=== PATIENT | female | born 2000 | race Caucasian/White ===

== ENCOUNTER 2019-03-03 13:17 | Inpatient (IN) | payer OTHER ==
[~2019-03-03] VITALS: Ht 162.6 cm; Wt 63.5 kg
[2019-03-03 13:28] VITALS: BP 122/98
[2019-03-03] MEDS ORDERED: ONDANSETRON 4 MG/2 ML VIAL IVP ONE (13:40)
[2019-03-03] MEDS ORDERED: MORPHINE SULFATE 4 MG/ML SYR IVP ONE ×2 (13:40→14:30)
[2019-03-03] MEDS ORDERED: NACL 0.9% 1,000 ML IV ONE (13:40)
--- NOTE | 2019-03-03 14:10 | NUR ---
PT TO ER BED 03
--- NOTE | 2019-03-03 14:20 | NUR ---
PT BIB FREIND WITH C/O LRQ PAIN. PER PT SHE WOKE UP WITH PAIN AT THE ABDOMEN THIS AM. DENIES ANY RADIATION. BM REGULAR. HAS NAUSEA. DEIES ANY PROBLEM WITH URINATION. PAIN 10/10 , MAONING. ABDOMEN IS SOFT TO TOUCH, NON-TENDER . NO PAST MEDICAL HX. NO MEDS TAKEN AT HOME. PT SEEN BY ER MD. WILL CONTINUE TO MONITOR PT.
[2019-03-03 14:21] LABS: BASOPHILS % (AUTO) 0.2 % (0.0-2.0); EOSINOPHILS # (AUTO) 0.1 K/uL (0-0.4); EOSINOPHILS % (AUTO) 0.3 % (0.0-4.0); HEMATOCRIT 38.3 % (36-48); HEMOGLOBIN 12.7 g/dL (12.0-16.0); LYMPHOCYTES # (AUTO) 1.2 K/uL (2.5-16.5); LYMPHOCYTES % (AUTO) 7.4 % (20.5-51.1); MEAN CORPUSCULAR HEMOGLOBIN 30 pg (27-31); MEAN CORPUSCULAR HGB CONC 33 g/dL (33-37); MEAN CORPUSCULAR VOLUME 89.2 fL (80-94); MONOCYTES # (AUTO) 0.5 K/uL (0.8-1.0); MONOCYTES % (AUTO) 3.3 % (1.7-9.3); NEUTROPHILS # (AUTO) 14.4 K/uL (1.8-7.7); NEUTROPHILS % (AUTO) 88.8 % (42.2-75.2); PLATELET COUNT (AUTO) 256 K/uL (140-450); RED BLOOD CELL COUNT(AUTO) 4.29 MIL/uL (4.20-5.40); WHITE BLOOD COUNT (AUTO) 16.2 K/uL (4.5-11.0)
--- NOTE | 2019-03-03 14:22 | NUR ---
CHECKED ON PT. STILL C/O PAIN WITH SHAKINESS.
[2019-03-03] MEDS ORDERED: KETOROLAC 15 MG/ML VIAL IVP ONE (14:30)
[2019-03-03 14:32] LABS: ANION GAP 15.8 (8-16); CARBON DIOXIDE 24.1 mmol/L (21-32); CREATININE 0.8 mg/dL (0.6-1.3); POTASSIUM 3.9 mmol/L (3.5-5.1)
[2019-03-03 14:40] LABS: ALBUMIN 3.8 g/dL (3.4-5.0); TOTAL BILIRUBIN 0.6 mg/dL (0.0-1.0)
--- NOTE | 2019-03-03 16:32 | NUR ---
CHECKED ON PT, INFORMED HER OF THE PENDING CT AND US REPORT. PER PT, PAIN TOLERABLE AT THIS TIME. RESTIG IN HER BED. WILL CONTINUE TO MONITOR PT.
--- NOTE | 2019-03-03 18:20 | NUR ---
CHECKED ON PT. JARROD FOR D/C. TO TALK TO PT.
[2019-03-03] MEDS ORDERED: MORPHINE SULFATE 2 MG/ML SYR IVP PRN (19:00)
[2019-03-03] MEDS ORDERED: ACETAMINOPHEN 325 MG TAB PO PRN (19:00)
[2019-03-03] MEDS ORDERED: HYDROcodone/APAP 10/325 MG 1 TAB TAB PO PRN (19:00)
[2019-03-03] MEDS ORDERED: LORazepam 2 MG/ML VIAL IM/IVP PRN (19:00)
[2019-03-03] MEDS ORDERED: ONDANSETRON 4 MG/2 ML VIAL IM/IVP PRN (19:00)
[2019-03-03] MEDS ORDERED: DOCUSATE SODIUM 100 MG GELCAP PO PRN (19:00)
--- NOTE | 2019-03-03 19:00 | NUR ---
RECIVED VERBAL AUTHORIZATION FROM PATIENT TO SPEAK TO MOTHER, MAKI, VIA TELEPHONE.
--- NOTE | 2019-03-03 19:15 | NUR ---
SPOKE WITH MOM, MAKI, INFORMED OF PT STATUS AND PLAN TO ADMIT. ALL QUESTIONS ANSWERED.
--- NOTE | 2019-03-03 19:40 | NUR ---
RECEIVED REPORT FROM ED NURSE. PATIENT IS AWAKE, ALERT, AND COOPERATIVE. ADMITTING DIAGNOSIS ABDOMINAL PAIN R/O APPENDICITIS. RESPIRATION EVEN UNLABORED ON ROOM AIR. SKIN IS WARM AND DRY. IV PATENT AND INTACT. HEART RATE IS REGULAR. LUNGS SOUNDS CLEAR ON AUSCULTATION. BOWEL SOUND ACTIVE IN ALL QUADRANTS. ABDOMEN SOFT AND TENDER TO TOUCH. COMPLAINED OF RIGHT SIDE ABDOMINAL PAIN. WILL ADMINISTER PAIN MEDS PER ORDER. MRSA SCREEN DONE. ORIENT PATIENT TO ROOM, STAFF, AND CALL LIGHT. VITALS WERE TAKEN. ALL SAFETY MEASURES IN PLACE. PLAN OF CARE WAS DISCUSSED. BED IS AT LOW POSITION. CALL LIGHT WITHIN REACH AND VERBALIZES ITS USE. WILL CONTINUE TO MONITOR.
--- NOTE | 2019-03-03 19:40 | NUR ---
Patient will be admitted to care of DR. CANO. Admited to [facility] FLOOR. Will go to room 120A. Belongings list completed. Report to SHER LOJA.
[2019-03-03 19:55] LABS: MAGNESIUM 1.5 mg/dL (1.8-2.4); THYROID STIMULATING HORMONE 0.9 uIU/mL (0.34-3.74)
[2019-03-03] MEDS ORDERED: metroNIDAZOLE 500 MG/NS PREMIX 100 ML IV SCH (20:00)
--- NOTE | 2019-03-03 20:00 | NUR ---
PATIENT GAVE ME PERMISSION TO SHARE INFORMATION TO HER MOTHER PATRICIO.PATIENTS MOM IS AWARE OF HER DAUGHTER SITUATION AND WILL NOTIFY HER IF THERE'S ANY UP DATES.
[2019-03-03 20:17] LABS: BARBITURATE, URINE NEG. ng/ml (NEG <=200); BENZODIAZEPINE, URINE NEG. ng/mL (NEG <=200); CANNABINOID, URINE NEG. ng/mL (NEG <=50); COCAINE, URINE NEG. ng/mL (NEG <=300); OPIATE, URINE NEG. ng/mL (NEG <=2000); PHENCYCLIDINE SCREEN,URINE NEG. ng/mL (NEG <=25)
[2019-03-03 20:18] LABS: PROTHROMBIN TIME 9.2 secs (10.8-13.4)
[2019-03-03] MEDS: KETOROLAC 15 MG/ML VIAL IVP PRN (20:24)
[2019-03-03] MEDS: DEXT 5% /NACL 0.9% 1,000 ML IV SCH (20:24)
[2019-03-03 20:27] LABS: APPEARANCE,URINE CLEAR (CLEAR); BILIRUBIN,URINE NEGATIVE (NEGATIVE); BLOOD, URINE NEGATIVE (NEGATIVE); COLOR,URINE YELLOW (YELLOW); PH,URINE 7.5 (5.0-9.0); UGLUCOSE NEGATIVE (NEGATIVE)
[2019-03-03 20:28] LABS: LEUKOCYTE ESTERASE ,URINE NEGATIVE (NEGATIVE); NITRITE, URINE NEGATIVE (NEGATIVE)
--- NOTE | 2019-03-03 20:30 | NUR ---
ADMINISTERED PRN PAIN MEDS TO THE PATIENT. DR. HERRERA AND DR. SEGUNDO AT BEDSIDE SPEAKING WITH THE PATIENT.
[2019-03-03] MEDS ORDERED: ZOLPIDEM 5 MG TAB PO PRN (21:00)
[2019-03-03] MEDS ORDERED: MAG SULF 2000 MG/WATER PREMIX 50 ML IV SCH (21:00)
[2019-03-03] MEDS ORDERED: cefTRIAXone 1,000 MG VIAL ONE (21:37)
--- NOTE | 2019-03-03 23:00 | NUR ---
PATIENT LEFT THE UNIT IN STABLE CONDITION AND WENT TO CT SCAN.
--- NOTE | 2019-03-03 23:20 | NUR ---
PATIENT IS BACK ON THE UNIT. PATIENT IS IN STABLE CONDITION. NO DISTRESS NOTED. WILL CONTINUE TO MONITOR.
[2019-03-04] VITALS: BP 98/50
--- NOTE | 2019-03-04 | NUR ---
VITALS WERE TAKEN. PATIENT IN STABLE CONDITION. PATIENT COMPLAINED OF ABDOMINAL PAIN 8/. PRN PAIN MED ADMINISTERED PER ORDER. WILL CONTINUE TO MONITOR.
[2019-03-04] MEDS: MORPHINE SULFATE 2 MG/ML SYR IVP PRN ×4 (00:48→18:41)
--- NOTE | 2019-03-04 01:00 | NUR ---
PATIENT MOM CALLED ASKING FOR THE RESULT OF THE CT ABDOMEN/PELVIS. TOLD HER RESULT IS NOT OUT YET AND WILL NOTIFY HER SOON ITS OUT. WILL PAGE RADIOLOGY AGAIN TO SPEED UP THE PROCESS OF THE RESULT.
--- NOTE | 2019-03-04 01:30 | NUR ---
CT ABDOMEN/PELVIS RESULT IS OUT. GAVE THE RESULT TO DR. HERRERA. WILL CONTINUE TO MONITOR.
--- NOTE | 2019-03-04 02:00 | NUR ---
CHECKED ON PATIENT. PATIENT SLEEPING RESPIRATION EVEN UNLABORED ON ROOM AIR. NO DISTRESS NOTED. WILL CONTINUE TO MONITOR.
--- NOTE | 2019-03-04 04:00 | NUR ---
VITALS WERE TAKEN. PATIENT COMPLAINED OF ABDOMINAL PAIN 5/10. PRN PAIN MED ADMINISTERED PER ORDER. WILL CONTINUE TO MONITOR
[2019-03-04] MEDS: KETOROLAC 15 MG/ML VIAL IVP PRN (04:21)
[2019-03-04] MEDS: DEXT 5% /NACL 0.9% 1,000 ML IV SCH ×2 (05:52→14:59)
--- NOTE | 2019-03-04 06:46 | NUR ---
PATIENT HAS BEEN SCREENED AND CATEGORIZED LOW NUTRITION RISK. PATIENT WILL BE SEEN WITHIN 7 DAYS OF ADMISSION. 03/11/19 RADHA CASTRO MS, RDN Addendum: 03/04/19 at [address] *Correction: PATIENT HAS BEEN SCREENED AND CATEGORIZED LOW NUTRITION RISK. PATIENT WILL BE SEEN WITHIN 7 DAYS OF ADMISSION. 03/10/19 RADHA CASTRO MS, RDN
--- NOTE | 2019-03-04 07:28 | NUR ---
RECEIVED REPORT FROM POWER REACTOR SUPERVISOR NURSE. PT IS AAOX4, NO C/O PAIN. IV ON LT AC 20 GA RUNNING IVF PER ORDER. RESPIRATIONS EVEN AND UNLABORED ON RA. ABD SOFT, ACTIVE BS. SKIN IS INTACT, WARM TO TOUCH. SAFETY MEASURES IN PLACE, CALL LIGHT WITHIN REACH. REVIEWED POC WITH PT, PT VERBALIZES UNDERSTANDING.
--- NOTE | 2019-03-04 07:28 | NUR ---
ENDORSED PATIENT TO DAY SHIFT NURSE. PATIENT IN STABLE CONDITION
[2019-03-04] MEDS: BUPIVACAINE-MPF/EPI 0.5% 30 ML VIAL INJ ONE ×2 (07:29→09:01)
--- NOTE | 2019-03-04 07:30 | NUR ---
PT TAKEN FOR LAPAROSCOPIC APPENDECTOMY PROCEDURE AT THIS TIME. NO SIGNS OF DISTRESS NOTED.
[2019-03-04 07:43] LABS: BASOPHILS % (AUTO) 0.2 % (0.0-2.0); EOSINOPHILS # (AUTO) 0.1 K/uL (0-0.4); EOSINOPHILS % (AUTO) 0.5 % (0.0-4.0); HEMATOCRIT 36.5 % (36-48); HEMOGLOBIN 12.2 g/dL (12.0-16.0); LYMPHOCYTES # (AUTO) 1.4 K/uL (2.5-16.5); LYMPHOCYTES % (AUTO) 11.1 % (20.5-51.1); MEAN CORPUSCULAR HEMOGLOBIN 30 pg (27-31); MEAN CORPUSCULAR HGB CONC 33 g/dL (33-37); MEAN CORPUSCULAR VOLUME 89.8 fL (80-94); MONOCYTES # (AUTO) 0.9 K/uL (0.8-1.0); MONOCYTES % (AUTO) 7.2 % (1.7-9.3); NEUTROPHILS # (AUTO) 9.9 K/uL (1.8-7.7); PLATELET COUNT (AUTO) 248 K/uL (140-450); RED BLOOD CELL COUNT(AUTO) 4.06 MIL/uL (4.20-5.40); RED CELL DISTRIBUTION WIDTH 13.4 % (11.6-13.7); WHITE BLOOD COUNT (AUTO) 12.3 K/uL (4.5-11.0)
[2019-03-04 07:45] LABS: MAGNESIUM 2.1 mg/dL (1.8-2.4)
[2019-03-04 07:51] LABS: ANION GAP 13.8 (8-16); CARBON DIOXIDE 23.8 mmol/L (21-32); CREATININE 0.8 mg/dL (0.6-1.3); POTASSIUM 3.6 mmol/L (3.5-5.1)
[2019-03-04] MEDS ORDERED: MIDAZOLAM 2 MG/2 ML VIAL ONE (07:53)
[2019-03-04] MEDS ORDERED: fentaNYL 0.05 MG/ML VIAL ONE (07:53)
[2019-03-04 07:56] LABS: PHOSPHORUS 3.4 mg/dL (2.5-4.9)
[2019-03-04] MEDS ORDERED: ONDANSETRON 4 MG/2 ML VIAL IVP ONE (08:10)
[2019-03-04] MEDS ORDERED: GLYCOPYRROLATE 0.2 MG/ML VIAL IV ONE (08:10)
[2019-03-04] MEDS ORDERED: LIDOCAINE MPF 1% 10 MG/ML VIAL INJ ONE (08:10)
[2019-03-04] MEDS ORDERED: KETOROLAC 30 MG/ML VIAL IVP ONE (08:10)
[2019-03-04] MEDS ORDERED: DEXAMETHASONE 4 MG/ML VIAL IVP ONE (08:10)
[2019-03-04] MEDS ORDERED: SUCCINYLCHOLINE CHLORIDE 200 MG/10 ML VIAL IV ONE (08:10)
[2019-03-04] MEDS ORDERED: PHENYLEPHRINE 10 MG/ML VIAL IV ONE (08:10)
[2019-03-04] MEDS ORDERED: PROPOFOL 200 MG/20 ML VIAL IV ONE (08:10)
[2019-03-04] MEDS ORDERED: ROCURONIUM 50 MG/5 ML VIAL IV ONE (08:10)
[2019-03-04] MEDS ORDERED: DESFLURANE 240 ML BTL INH ONE (08:10)
[2019-03-04 08:34] LABS: CHOL/HDL RATIO 3.3 (1-4.5)
[2019-03-04] MEDS ORDERED: ONDANSETRON 4 MG/2 ML VIAL IVP PRN (09:15)
[2019-03-04] MEDS ORDERED: HYDROmorphone 1 MG/ML AMP IVP PRN (09:15)
[2019-03-04 10:25] VITALS: BP 98/51
--- NOTE | 2019-03-04 10:25 | NUR ---
PT RETURNED FROM PROCEDURE. DECREASED BLOOD PRESSURE NOTED, PHYSICIAN NOTIFIED. C/O LEVEL 7/10 PAIN TO ABDOMEN, WILL MEDICATE PER ORDER. FATHER/RAY AT BEDSIDE.
[2019-03-04] MEDS: metroNIDAZOLE 500 MG/NS PREMIX 100 ML IV SCH ×3 (10:40→17:24)
--- NOTE | 2019-03-04 10:52 | NUR ---
ADMINISTERED MORPHINE FOR PAIN AND ZOFRAN FOR FEELINGS OF NAUSEA. PT REFUSED LACTOBACILLUS AT THIS TIME, NOTIFIED PHYSICIAN. PT GIVEN COOL WASHCLOTH TO FOREHEAD PER REQUEST. WILL CONTINUE TO MONITOR PT.
[2019-03-04] MEDS: LACTOBACILLUS RHAMNOSUS GG 1 EACH CAP PO SCH ×2 (10:57→10:59)
--- NOTE | 2019-03-04 12:30 | NUR ---
PT ASKED IF SHE CAN HAVE A SMOOTHIE LATER TODAY. PER DR. DOYLE, PT MAY HAVE SMOOTHIE IF PATIENT TOLERATES LUNCH AND DINNER. PT VERBALIZED UNDERSTANDING.
[2019-03-04] MEDS: oxyCODONE 5 MG TAB PO PRN (12:40)
--- NOTE | 2019-03-04 15:15 | NUR ---
PT ABLE TO AMBULATE WITH ASSIST ONE TIME AROUND [facility] UNIT. FATHER AT SIDE, PT AMBULATING WITH STEADY GAIT.
[2019-03-04 16:00] VITALS: BP 102/56
--- NOTE | 2019-03-04 16:17 | NUR ---
AWAKE AND ALERT VERBALLY RESPONSIVE PATIENT REFUSES INCENTIVE SPIROMETRY THERAPY DUE TO ABDOMINAL PAIN MORTGAGE LOAN OFFICER ORIGINATOR TO ATTEMPT THERAPY AT A LATER TIME
--- NOTE | 2019-03-04 17:24 | NUR ---
ADMINISTERED IV FLAGYL, PT IS AWARE OF INDICATIONS AND POTENTIAL SIDE EFFECTS.
--- NOTE | 2019-03-04 19:02 | NUR ---
ENDORSED PT TO DRIER BELT CONVEYOR NURSE. PT HAS NO SIGNS OF DISTRESS AT THIS TIME.
--- NOTE | 2019-03-04 19:03 | NUR ---
RECEIVED REPORT FROM AM SHIFT NURSE. PT IS AAOX4, COMPLAINED OF 07/23 ON SURGICAL INCISION S/P LAP APPENDECTOMY WILL MEDICATE PER DR'S ORDER. IV ON LT HAND 22GA RUNNING IVF PER ORDER. RESPIRATIONS EVEN AND UNLABORED ON RA. WITH DRESSING IN PLACE .NO BLEEDING NOTED. WARM TO TOUCH. SAFETY MEASURES IN PLACE, CALL LIGHT WITHIN REACH. REVIEWED POC WITH PT, PT VERBALIZES UNDERSTANDING. Addendum: 03/04/19 at 2146 by Sakina Sheppard RN DELETE "WITH DRESSING" AMEND TO ---OPEN TO AIR, NO BLEEDING ON THE SURGICAL INCISIONS ( LOWER ABDOMEN, LEFT ABDOMEN)
[2019-03-04 20:00] VITALS: BP 100/49
--- NOTE | 2019-03-04 20:00 | NUR ---
PT RESTING AT THIS TIME, NO COMPLAINTS OF PAIN .WILL CONTINUE TO MONITOR
--- NOTE | 2019-03-04 21:00 | NUR ---
PT SLEEPING COMFORTABLY, CHECKED PT FREQUENTLY, NO SIGNS AND SYMPTOMS OF RESPIRATORY DISTRESS WILL CONTINUE TO MONITOR
[2019-03-05] MEDS: DEXT 5% /NACL 0.9% 1,000 ML IV SCH ×2 (01:19→11:07)
--- NOTE | 2019-03-05 04:00 | NUR ---
GAVE HEALTH EDUCATION ON SPIROMETER. PT VERBALIZED UNDERSTANDING. SHE SAID THAT SHE FINDS IT HARD TO DO IT. ENCOURAGE PT, FOR OPTIMAL HEALTH BENEFITS AND PAIN CONTROL.
[2019-03-05] MEDS: MORPHINE SULFATE 2 MG/ML SYR IVP PRN (05:30)
--- NOTE | 2019-03-05 05:30 | NUR ---
GAVE PAIN MEDS PT C.O OF PAIN ON THE SURGICAL SITE 12/23. WILL RE-ASSESS
[2019-03-05 06:08] VITALS: BP 101/50
[2019-03-05 06:37] LABS: BASOPHILS % (AUTO) 0.2 % (0.0-2.0); EOSINOPHILS % (AUTO) 0.1 % (0.0-4.0); HEMATOCRIT 35.3 % (36-48); HEMOGLOBIN 12.2 g/dL (12.0-16.0); LYMPHOCYTES # (AUTO) 1.4 K/uL (2.5-16.5); LYMPHOCYTES % (AUTO) 12.9 % (20.5-51.1); MEAN CORPUSCULAR HEMOGLOBIN 31 pg (27-31); MEAN CORPUSCULAR HGB CONC 35 g/dL (33-37); MEAN CORPUSCULAR VOLUME 90.2 fL (80-94); MONOCYTES # (AUTO) 0.7 K/uL (0.8-1.0); MONOCYTES % (AUTO) 7.1 % (1.7-9.3); NEUTROPHILS # (AUTO) 8.4 K/uL (1.8-7.7); NEUTROPHILS % (AUTO) 79.7 % (42.2-75.2); PLATELET COUNT (AUTO) 249 K/uL (140-450); RED BLOOD CELL COUNT(AUTO) 3.91 MIL/uL (4.20-5.40); RED CELL DISTRIBUTION WIDTH 13.5 % (11.6-13.7); WHITE BLOOD COUNT (AUTO) 10.5 K/uL (4.5-11.0)
[2019-03-05 06:46] LABS: ANION GAP 10.8 (8-16); CREATININE 0.7 mg/dL (0.6-1.3); POTASSIUM 3.8 mmol/L (3.5-5.1)
--- NOTE | 2019-03-05 07:24 | NUR ---
ENDORSED TO AM SHIFT PT IN STABLE CONDITION
--- NOTE | 2019-03-05 07:25 | NUR ---
RECEIVED REPORT FROM REGIONAL CONSTRUCTION MANAGER NURSE. PT IS AROUSABLE TO NAME, ORIENTED X4. NO C/O PAIN AT THIS TIME. RESPIRATIONS EVEN AND UNLABORED ON RA. IV ON LT HAND 22 GA RUNNING IVF PER ORDER. ABD SOFT, ACTIVE BS. ABD INCISIONS INTACT, SKIN IS WARM TO TOUCH. SAFETY MEASURES IN PLACE, CALL LIGHT WITHIN REACH. REVIEWED POC WITH PT, PT VERBALIZED UNDERSTANDING.
[2019-03-05 08:00] VITALS: BP 97/54
--- NOTE | 2019-03-05 08:01 | NUR ---
PT IS AWARE THAT SHE NEEDS TO START WALKING MORE FOR FASTER RECOVERY, PT VERBALIZED UNDERSTANDING.
[2019-03-05] MEDS: LACTOBACILLUS RHAMNOSUS GG 1 EACH CAP PO SCH (10:08)
[2019-03-05] MEDS: metroNIDAZOLE 500 MG/NS PREMIX 100 ML IV SCH ×3 (10:08→17:04)
[2019-03-05] MEDS ORDERED: INFLUENZA VACCINE QUAD 0.5 ML SYR IMVAC PRN (10:30)
[2019-03-05] MEDS: oxyCODONE 5 MG TAB PO PRN ×2 (11:08→17:08)
--- NOTE | 2019-03-05 11:08 | NUR ---
ADMINISTERED PAIN MEDICATION PER ORDER FOR LEVEL 6/10 PAIN TO INCISION, WILL REASSESS WITHIN 1 HOUR.
--- NOTE | 2019-03-05 11:50 | NUR ---
ASSISTED PT WITH AMBULATION AROUND [facility] UNIT, PT PAUSED TWICE TO CONTROL BREATHING AND MANAGE PAIN. PT TOLERATED WELL.
[2019-03-05 12:00] VITALS: BP 98/58
--- NOTE | 2019-03-05 14:00 | NUR ---
PT IS AWARE OF DISCHARGE ORDER. PT REQUESTED TO SPEAK WITH DR. TAPIA REGARDING CONCERNS OF PAIN. WILL NOTIFY PHYSICIAN.
--- NOTE | 2019-03-05 14:45 | NUR ---
DR. TAPIA NOTIFIED DR. SEGUNDO D/T S/P LAPAROSCOPIC APPENDECTOMY PAIN. SURGEON WILL SEE PATIENT AT A LATER TIME.
[2019-03-05 16:00] VITALS: BP 100/52
--- NOTE | 2019-03-05 16:00 | NUR ---
PT STATES "I DECIDED TO GO HOME" AFTER SPEAKING WITH DR. SEGUNDO.
--- NOTE | 2019-03-05 17:30 | NUR ---
PT REFUSED TO HAVE FLU VACCINE AT THIS TIME.
--- NOTE | 2019-03-05 18:30 | NUR ---
PT HAS BEEN DISCHARGED. ALL PAPERWORK SIGNED, ALL QUESTIONS ANSWERED. ALL BELONGINGS AND PRESCRIPTIONS IN PT POSSESSION. IV DISCONTINUED WITH CANNULA INTACT. WRISTBANDS REMOVED. PT TRANSFERRED OUT OF UNIT VIA WHEELCHAIR. FRIEND AND RICE FARMWORKER AT SIDE. PT IS IN STABLE CONDITION.
== END 2019-03-05 18:30 | disposition home or self-care (01) | DRG 854 ==
LOC: MED 13:17 → MTU 18:59
PROVIDERS: ADMIT General Practice; ATTEND General Practice
PROC: 0DTJ4ZZ Resection of Appendix, Percutaneous Endoscopic Approach (ICD-10-PCS; principal; 2019-03-04 07:30)
DX: A41.9 Sepsis, unspecified organism (principal); K35.80 Unspecified acute appendicitis; Z83.3 Family history of diabetes mellitus; Z82.3 Family history of stroke
CPT/HCPCS: 36415; 71045; 76856; 80048; 80053; 80305; 81003; 82150; 82374; 83036; 83605; 83615; 83690; 83735; 84100; 84134; 84436; 84443; 84484; 85025; 85610; 85730; 87040; 87081; 87086; 88304; 96361; 96374; 96375; 96376; 99285; G0378; J0330; J0696; J1100; J1885; J2001; J2250; J2270; J2370; J2405; J2704; J3010; J3475; J3490; J7030; J7042; J7060; Q0092; Q9967